=== PATIENT | female | born 1985 | race Caucasian/White ===

== ENCOUNTER 2017-03-09 07:37 | Outpatient (CLI) | payer OTHER ==
[2017-03-16 15:43] LABS: TEST RESULT REPORT (())
== END 2017-03-09 07:38 | disposition home or self-care (01) ==
LOC: LAB 07:37
PROVIDERS: ATTEND Internal Medicine Gastroenterology
DX: K50.00 Crohn's disease of small intestine without complications (principal)
CPT/HCPCS: 36415; 81599; 83993